=== PATIENT | male | born 1945 | race Caucasian/White ===

== ENCOUNTER → 2017-09-13 | Outpatient (CLI) | payer OTHER ==
[~2017-09-13] MED LIST: ACETAMINOPHEN325 M1 PO; ADULT LOW DOSE81 MG PO; ALEVE220 MG; ALEVE220 MG PO; ASPIRIN325 PO; ASPIRIN81 M2 PO; BACTRIM DS TAB1 EACH PO; BENICAR20 MG PO; COLACE 100 MG100 MG PO; DEPAKOTE ER500 MG PO; DEPAKOTE PO; DEPAKOTE125 MG PO; DEPAKOTE500 MG PO; DIAZEPAM 2MG TAB2 MG PO; DIAZEPAM 5 MG5 M1 PO; EFFEXOR PO; EFFEXOR XR150 MG PO; FISH OIL 1,001000 MG PO; FISH OIL 1,2001 EAC4 PO; FISHOIL; GABAPENTIN 100100 MG PO; HYDROCODONE-AP1 EAC6 PO; HYPOTEARS EYE D15 ML OPHTHALMIC; IBUPROFEN 600600 M1 PO; KEFLEX500 MG PO; LAMICTAL PO; LAMICTAL XR100 MG PO; LAMICTAL XR50 MG; LAMOTRIGINE100 MG PO; LIPITOR 20 MG T20 M1 PO; LIPITOR20 MG PO; LORTAB 5 MG/5001 TAB PO; MECLIZINE 25 MG25 M1 PO; METOPROLOL SUC100 MG PO; MOBIC7.5 M1 PO; MOM PO; MORPHINE SULFAT15 M4 PO; NEURONTIN 300300 M1 PO; NORCO 5-325 TA1 EACH PO; PERCOCET PO; PROAIR HFA8.5 GM IH; RANITIDINE PO; SKELAXIN 800 M800 M1 PO; TRAMADOL 50 MG50 MG; TRAMADOL 50 MG50 MG PO; VALIUM5 MG PO; VYTORIN 10-201 EACH; ZANTAC 150MG T150 M1 PO; ZOLOFT PO; ZPAK PO
--- NOTE | ~2017-09-13 | 2DMMODE ---
[facility] [address] [place] [address] 2 D/M-MODE ECHOCARDIOGRAM Name: NIKOLAYFRANCO WALTON Room #: REG [facility], [facility]#: [id number] Admission: 09/13/17 Attend Phys: Otis Real MD Discharge: Date of : 45 Date of Service: 09/13/17 1410 Report #: [id number] THIS REPORT FOR: //name// APPROVED REPORT Study performed: 09/13/2017 13:08:43 EXAM: Comprehensive 2D, Doppler, and color-flow Echocardiogram Status: routine BSA: 2.02 HR: 64 bpm BP: 132/81 mmHg Rhythm: NSR Other Information Study Quality: Adequate Indications Dyspnea 2D Dimensions RVDd: 28.49 mm LVEF(%): 54.78 (>50%) IVSd: 10.46 (7-11mm) LVOT Diam: 21.54 (18-24mm) LVDd: 39.16 mm PWd: 11.47 (7-11mm) Ascending Ao: 32.96 (22-36mm) LVDs: 28.21 (25-40mm) Aortic Root: 33.81 mm Steward's LVEF: 54.78 % Volumes Left Atrial Volume (Systole) Single Plane 4CH: 41.86 mL Single Plane 2CH: 36.45 mL LA ESV Index: 20.00 mL/m2 Aortic Valve AoV Peak Mega.: 1.11 m/s AO Peak Gr.: 4.89 mmHg LVOT Max P.11 mmHg LVOT Max V: 1.13 m/s CLIFTON Vmax: 3.72 cm2 Mitral Valve E/A Ratio: 0.8 MV Decel. Time: 240.27 ms MV E Max Mega.: 0.67 m/s [facility] [address] [place] [address] 2 D/M-MODE ECHOCARDIOGRAM Name: FRANCO LINK Room #: REG [facility]#: [id number] Admission: 09/13/17 Attend Phys: Otis Real MD Discharge: Date of : 45 Date of Service: 09/13/17 1410 Report #: [id number] MV A Mega.: 0.87 m/s MV PHT: 69.68 ms IVRT: 129.18 ms Pulmonary Valve PV Peak Mega.: 0.92 m/s PV Peak Gr.: 3.35 mmHg Pulmonary Vein P Vein S: 0.59 m/s P Vein A: 0.21 m/s P Vein D: 0.29 m/s P Vein A Dur.: 120.0 msec P Vein S/D Ratio: 2.03 Tricuspid Valve TR Peak Mega.: 2.82 m/s RAP Estimate: 5.00 mmHg TR Peak Gr.: 31.78 mmHg PA Pressure: 37.00 mmHg Left Ventricle The left ventricle is normal size. There is normal LV segmental wall motion. There is normal left ventricular wall thickness. Left ventricular systolic function is normal. LVEF is 55-60%. Mild diastolic dysfunction is present (impaired relaxation pattern). Right Ventricle The right ventricle is normal size. The right ventricular systolic function is normal. Atria The left atrium size is normal. The right atrium size is normal. Aortic Valve The Aortic valve is mildly sclerotic. Mild aortic regurgitation. There is no aortic valvular stenosis. Mitral Valve The mitral valve is normal in structure. Mild mitral regurgitation. Tricuspid Valve The tricuspid valve is normal in structure. Mild tricuspid regurgitation. Estimated PAP is 35-40mmHg. Pulmonic Valve The pulmonary valve is normal in structure. Trace pulmonic [facility] [address] [place] [address] 2 D/M-MODE ECHOCARDIOGRAM Name: NIKOLAYFRANCO ANTON Room #: REG [facility], [facility]#: [id number] Admission: 09/13/17 Attend Phys: Otis Real MD Discharge: Date of : 45 Date of Service: 09/13/17 1410 Report #: [id number] regurgitation. Great Vessels The aortic root is normal in size. The ascending aorta is normal in size. IVC is normal in size and collapses >50% with inspiration. Pericardium There is no pericardial effusion. <Conclusion> The left ventricle is normal size. There is normal left ventricular wall thickness. Left ventricular systolic function is normal. Mild diastolic dysfunction is present (impaired relaxation pattern). The right ventricle is normal size. The left atrium size is normal. Mild aortic regurgitation. Mild mitral regurgitation. Mild tricuspid regurgitation. Estimated PAP is 35-40mmHg. <ELECTRONICALLY SIGNED> By: Otis Real MD 09/13/17 1410 141 141 Otis Real MD /INF
== END ==
LOC: CV 09:47
DX: I08.3 Combined rheumatic disorders of mitral, aortic and tricuspid valves (principal)

== ENCOUNTER 2018-02-06 12:12 | Emergency (ER) | payer OTHER ==
[~2018-02-06] VITALS: Ht 175.3 cm; Wt 86.2 kg
[2018-02-06] MEDS ORDERED: BACTRIM DS TAB1 EACH PO (12:38)
== END 2018-02-06 13:04 | disposition home or self-care (01) ==
LOC: ER 12:12
DX: L03.311 Cellulitis of abdominal wall (principal); Z90.89 Acquired absence of other organs

== ENCOUNTER → 2018-05-01 | Outpatient (CLI) | payer OTHER | LOC: CAT 09:37 | DX: K40.90 Unilateral inguinal hernia, without obstruction or gangrene, not specified as recurrent (principal); K57.30 Diverticulosis of large intestine without perforation or abscess without bleeding ==

== ENCOUNTER → 2018-08-21 | Outpatient (CLI) | payer OTHER | LOC: RAD 13:58 | DX: J98.4 Other disorders of lung (principal) ==

== ENCOUNTER → 2018-09-20 | Outpatient (CLI) | payer OTHER | LOC: CAT 09-19 11:04 | DX: J98.6 Disorders of diaphragm (principal); J98.11 Atelectasis; N62 Hypertrophy of breast; I25.10 Atherosclerotic heart disease of native coronary artery without angina pectoris; I70.0 Atherosclerosis of aorta ==

== ENCOUNTER → 2019-09-03 | Outpatient (CLI) | payer OTHER | LOC: RAD 15:02 | DX: J98.6 Disorders of diaphragm (principal) ==

== ENCOUNTER 2020-02-25 13:13 | Inpatient (IN) | payer OTHER ==
[~2020-02-25] VITALS: Ht 175.3 cm; Wt 86.2 kg
[~2020-02-25 13:13] MED LIST changes: +DEPAKOTE SPRIN125 MG PO; -DEPAKOTE125 MG PO
[2020-02-25 13:17] VITALS: BP 137/55
[2020-02-25] MEDS ORDERED: CARBIDOPA-LEVO1 EAC9 PO (13:25)
[2020-02-25 13:46] LABS: ABSOLUTE NEUTROPHILS 4.4 thou/uL (1.4-8.2); BASOPHILS 0.8 % (0.0-2.0); EOSINOPHILS 4.2 % (0.0-3.0); HEMATOCRIT 41.9 % (42.0-52.0); HEMOGLOBIN 14.5 gm/dL (14.0-18.0); LYMPHOCYTES 19.8 % (24.0-44.0); MCH 30.8 pg (26.0-34.0); MCHC 34.5 g/dL (28.0-37.0); MCV 89.4 fL (80.0-100.0); MONOCYTES 10.2 % (1.0-8.0); PLATELET COUNT 242 thou/uL (150-400); RBC 4.69 mil/uL (4.50-6.00); RDW 14.2 % (10.5-14.5); WBC 6.8 thou/uL (4.0-11.0)
[2020-02-25 13:55] LABS: CALCIUM 9.2 mg/dL (8.5-10.1); CREATININE 1.2 mg/dL (0.7-1.3); POTASSIUM 4.3 mmol/L (3.5-5.1)
[2020-02-25 14:01] LABS: ALBUMIN 3.6 g/dL (3.4-5.0); TOTAL BILIRUBIN 0.7 mg/dL (0.2-1.0)
[2020-02-25 14:55] LABS: URINE BILIRUBIN NEGATIVE (Negative); URINE BLOOD NEGATIVE (Negative); URINE CLARITY CLEAR; URINE COLOR YELLOW; URINE GLUCOSE-RANDOM* NEGATIVE (Negative); URINE KETONES NEGATIVE (Negative); URINE LEUKOCYTES-REFLEX NEGATIVE (Negative); URINE NITRITE-REFLEX NEGATIVE (Negative); URINE PROTEIN (DIPSTICK) NEGATIVE (Negative); URINE SPECIFIC GRAVITY 1.015 (1.005-1.035); URINE UROBILINOGEN 0.2 E.U./dl (0.2-1.0)
--- NOTE | 2020-02-25 16:08 | EKG ---
[facility] [place] [address] ELECTROCARDIOGRAM REPORT Name: FRANCO LINK Room #: REG [facility]#: [id number] Admission: 02/25/20 Attend Phys: Discharge: Date of : 45 Report #: [id number] THIS REPORT FOR: cc: Em Forbes MD,Em Lopez,Rgeinald Wiseman MD ~ THIS REPORT FOR: //name// [facility] ED Test Date: 2020-02-25 Test Time: 14:21:39 Pat Name: FRANCO LINK Department: Room: Gender: Manager Deli: [email or web address] : 1945 Requested By: Clemente Milligan Order Number: [id number] : Reginald Lopez Measurements Intervals [place] Rate: 66 P: -18 CA: 222 QRS: 7 QRSD: 93 T: 49 QT: 417 QTc: 437 Interpretive Statements Sinus rhythm Prolonged CA interval Abnormal R-wave progression, early transition Artifact in lead(s) I,II,III,aVR,aVL,aVF,V4,V5,V6 Compared to ECG 03/21/2016 08:47:31 First degree AV block now present Sinus tachycardia no longer present Electronically Signed On 02-25-2020 16:08:37 CDT by Reginald Lopez [email or web address] <ELECTRONICALLY SIGNED> By: Reginald Lopez MD 02/25/20 1608 [id number] 1421 Reginald Lopez MD /EPI
[2020-02-25 18:13] VITALS: BP 127/63
[2020-02-25] MEDS ORDERED: DEPAKOTE SPRIN125 MG PO (18:36)
[2020-02-25 19:40] VITALS: BP 110/71
[2020-02-25 20:00] VITALS: BP 124/66
[2020-02-26 00:33] VITALS: BP 116/64
--- NOTE | 2020-02-26 01:06 | NUR ---
VSS-AFEBRILE. ALERT AND ORIENTED X 4, LUNGS DIMINISHED IN ALL MATHIS BILATERALLY. 2LNC IN PLACE-NO HOME O2 AT BASELINE. NO C/O PAIN. FALL PRECAUTIONS IN PLACE DUE TO INCREASED WEAKNESS, UPPER EXTREMITY TREMORS NOTED. SBA WHEN OUT OF BED, USES CANE, AND CALLS APPROPRIATELY WHEN NEEDING ANY ASSISTANCE.
[2020-02-26 05:04] VITALS: BP 116/67
[2020-02-26 05:34] LABS: HEMATOCRIT 39.8 % (42.0-52.0); HEMOGLOBIN 13.7 gm/dL (14.0-18.0); MCH 30.9 pg (26.0-34.0); MCHC 34.4 g/dL (28.0-37.0); MCV 89.7 fL (80.0-100.0); RBC 4.43 mil/uL (4.50-6.00); RDW 14.5 % (10.5-14.5); WBC 5.7 thou/uL (4.0-11.0)
[2020-02-26 05:52] LABS: CALCIUM 8.9 mg/dL (8.5-10.1); CREATININE 1.5 mg/dL (0.7-1.3); POTASSIUM 4.2 mmol/L (3.5-5.1)
[2020-02-26 08:01] VITALS: BP 135/58
--- NOTE | 2020-02-26 10:48 | NUR ---
INITIAL ASSESSMENT: FALGUNI reviewed chart and spoke with nursing and attending physician. Pt was admitted from [facility] due to pneumonia. Pt placed in Enhanced Isolation to rule out COVID-19. Awaiting test results at this time. Pt with hx of Parkinson's Disease. Pt is afebrile and not requiring O2 at this time. Pt is on IV abx. FALGUNI spoke with pt via phone. Introduced role of SW. Pt is alert/orientated. Pt reports he lives alone in an apt in the Independent Living. Pt is independent with ADLs and has a cane and walker. Pt does not have to navigate any stairs. There is elevator access if needed. Pt was on [facility] in 2011 and has been to [facility] in the past. Pt has used [facility] in the past. FALGUNI discussed possible discharge needs: post-acute care of HH services. Pt is agreeable with going to [facility] if accepted. FALGUNI discussed with [facility] manager rehab. [facility] consult ordered. Awaiting therapy evals. FALGUNI spoke with Will at [facility] to provide update. FALGUNI is following to assist as needed with discharge planning.
--- NOTE | 2020-02-26 11:53 | NUR ---
PT WAS OFF OF NASAL CANULA THIS MORNING WITH SPO2 AT 97, PT HAD CONCERNS REGARDING MEDICATION; RN CLARIFIED THAT ALL MEDICATION CURRENTLY PRESCRIBED TO THE PT IS BEING RESUMED UNDER HOSPITAL CARE; PT DID GET ANXIOUS ABOUT RECEIVING ALL MEDS AND RN HAD TO HELP PT CALM DOWN FEW TIMES. ADDITIONALLY, PT WAS CONCERNED ABOUT GETTING DME CHARGED, RN FROM [facility] WILL BRING THE CHARGERS TODAY AND THIS RN WILL CHARGE THE DEVICES. CURRENTLY WAITING ON THE COVID TEST RESULT. NO OTHER ISSUES AT THIS TIME
[2020-02-26 16:05] VITALS: BP 101/47
[2020-02-26 19:35] VITALS: BP 116/65
[2020-02-27 03:15] VITALS: BP 123/75
--- NOTE | 2020-02-27 03:43 | NUR ---
RESTING QUIETY TONIGHT. HYDROCODONE IS EFFECTIVE FOR HIS PAIN MEANAGEMENT. MEDICATIONS REFLECT HIS HOME REGIME. CONTINUES ON IV ANTIBIOTICS.
[2020-02-27 07:54] VITALS: BP 128/50
[2020-02-27 09:17] LABS: HEMATOCRIT 40.1 % (42.0-52.0); HEMOGLOBIN 13.6 gm/dL (14.0-18.0); MCH 30.6 pg (26.0-34.0); MCV 90.1 fL (80.0-100.0); RBC 4.46 mil/uL (4.50-6.00); RDW 14.5 % (10.5-14.5); WBC 5.1 thou/uL (4.0-11.0)
[2020-02-27 09:29] LABS: CALCIUM 8.5 mg/dL (8.5-10.1); CREATININE 1.3 mg/dL (0.7-1.3)
--- NOTE | 2020-02-27 11:39 | NUR ---
CONSULTED WITH THE PT TODAY, PROVIDED UPDATE REGARDING CURRENT PLAN OF CARE, ANY NEW CONCERNS. PT VOICED NONE. MEDICATION REGIMEN REITERRATED TO THE PT, PT VERBALIZES UNDERSTANDING BUT STILL HAVING CONCERNS REGARDING GETTING CORRECT DOSAGE OF MEDS FROM HOME. PAIN MEDICATION PROVIDED, LIDOCAINE PATCH PLACED ON LOWER BACK, NO COMPLAINTS OF PAIN FROM THE PT DURING THE SHIFT. SECOND COVID RESULT TO BE POPULATING TODAY, WILL UPDATE MICA MINER AND ATTENDING TO COORDINATE A PLAN FOR DISPOSITION. WILL CONTINUE TO MONITOR AND UPDATE NECESSARY
[2020-02-27 11:49] VITALS: BP 120/67
--- NOTE | 2020-02-27 11:52 | NUR ---
FALGUNI reviewed chart and spoke with nursing and attending physician. Pt remains in Enhanced Isolation to r/o COVID-19. Second test is pending. Pt is afebrile and not requiring O2. Pt is on IV abx. Awaiting therapy evals and [facility] consult once COVID test results are available. FALGUNI spoke with pt via phone to provide update. Pt is hoping to go to [facility] if accepted. FALGUNI received call from Leonarda at [facility]. FALGUNI updated Leonarda regarding possible admission to . Pt is agreeable with returning to [facility] with [facility] after rehab. FALGUNI is following to assist as needed with discharge planning.
[2020-02-27 16:44] VITALS: BP 114/65
[2020-02-27 17:59] VITALS: BP 98/51
--- NOTE | 2020-02-27 18:52 | NUR ---
Patient transferred from at 1745. Patient admitted on 02/25/20 with Diagnosis of Pneumonia after presenting to the ER with Generalized Weakness, Shortness of Air and Cough. Patient is on Room Air. He ambulates with stand-by assist with walker, gait belt or cane. Patient comes from [facility]. He has had 2 negative Covid Tests since admission. Patient has Chronic Back Pain, pain is controlled with a Pain Stimulator, Hydrocodone po and Lidocaine Patches. He has had 3 Brain Surgeries and can be stubborn at times. Patient is on Med/Surg Tele (Sinus Rythm with 1st Degree AV Block, Heartrate runs in the 60's). IV is in Left AC with NS running at 75cc/hr. He had a normal BM on 02/26/20. Lung Sounds clear in upper lobes; bases are diminished. Patient is on Blood Sugars AC and HS, he tends to run low and can become Hypoglycemic quickly. He needs several snacks throughout the shift. Patient pleasant and cooperative upon Transfer. He was given Bennie Crackers, Peanut Butter and Applejuice at 1830. Will report to on-coming nurse.
[2020-02-27 20:06] VITALS: BP 116/50
--- NOTE | 2020-02-28 03:10 | NUR ---
PT IS A&OX4. VITAL SIGNS STABLE. PT DENIES PAIN. PT IS ACHS. PT BLOOD SUGAR WAS 135 AND HE DID NOT CALL FOR INSULIN. PT STATED THAT HE FELT LOW - I RECHECKED BLOOD SUGARN WAS 86. PROVIDED ORAGE JUICE WITH SUGAR AND PEANUT BUTTER. PT STATES THAT HE HAS A HEADACHE. ONCE I GOT THE ORDER FILLED THE PT WAS SLEEP. PT HAS IV ANTIBIOTICS GOING IN THE ROOM RIGHT NOW. I WILL CONTINUE TO MONITOR.
[2020-02-28 05:46] LABS: HEMATOCRIT 38.4 % (42.0-52.0); HEMOGLOBIN 13.2 gm/dL (14.0-18.0); MCH 30.8 pg (26.0-34.0); MCHC 34.2 g/dL (28.0-37.0); RBC 4.27 mil/uL (4.50-6.00); RDW 14.7 % (10.5-14.5); WBC 5.1 thou/uL (4.0-11.0)
[2020-02-28 06:01] LABS: CALCIUM 8.5 mg/dL (8.5-10.1); CREATININE 1.3 mg/dL (0.7-1.3); MAGNESIUM 2.1 mg/dL (1.8-2.4); POTASSIUM 4.3 mmol/L (3.5-5.1)
[2020-02-28 07:47] VITALS: BP 129/65
--- NOTE | 2020-02-28 14:51 | NUR ---
Assumed pt care at 7am.Assessment completed.vss.Pt up in chair very sleepy but arousable.Pt has good appetite and tolerated meds.Dr Ha and Eliza here,order noted.Pt will possibly dc home with home health later today.Will continue to monitor.
[2020-02-28 15:17] VITALS: BP 129/65
--- NOTE | 2020-02-28 15:19 | NUR ---
[facility] ASSESSED AND INDICATED THAT PT IS DOING VERY MOBILITY WU AND WOULD BE MEDICALLY STABLE TO RETURN HOME WITH HH SERVICES ONCE MEDICALLY STABLE. CM SPOKE WITH PHYSICIAN AND HE INDICATED PT WOULD BE MEDICALLY STABLE TO DC HOME THIS DAY. CM SPOKE WITH PT AND HE IS AWARE AND AGREEABLE. HE WOULD LIKE TO USE [facility]. CM CALLED OFFICE AND FAXED OVER CLINICAL INFO AND ORDERS ARE TO FOLLOW ONCE COMPLETED. PT INIDCATED HE NEEDED TO PROVIDE COVID RESULTS TO [facility]. CM CALLED THE OFFICE THERE WITH PT'S PERMISSION AND FAXED TEST RESULTS OVER. CM TO ARRANGE [facility] ONCE ORDERS ARE ENTERED .
[2020-02-28] MEDS ORDERED: CEFDINIR300 MG PO (15:35)
[2020-02-28] MEDS ORDERED: AZITHROMYCIN 2250 MG PO (15:35)
--- NOTE | 2020-02-28 15:45 | NUR ---
PATIENT SEEN THIS DATE FOR REHAB CONSULT BY SOPHIE HULL NP WITH DR. MAGALLANES. PATIENT IS NOT A CANDIDATE FOR ACUTE REHAB. TOO HIGH FUNCTIONING. PATIENT TO DISCHARGE TO HOME WITH HOME HEALTH CARE. THANK YOU FOR THIS REFERRAL.
[2020-02-28 17:32] VITALS: BP 129/65
== END 2020-02-28 18:15 | disposition home health service (06) | DRG 193 ==
LOC: ER 13:13 → EROBS 17:37 → 3W 17:37 → 4W 02-27 18:29
PROVIDERS: Internal Medicine; Physician Assistant; ADMIT Hospitalist; ATTEND Hospitalist
DX: J18.9 Pneumonia, unspecified organism (principal); N17.0 Acute kidney failure with tubular necrosis; F31.9 Bipolar disorder, unspecified; I10 Essential (primary) hypertension; E78.5 Hyperlipidemia, unspecified; E11.9 Type 2 diabetes mellitus without complications; G20 Parkinson's disease; Z20.828 Contact with and (suspected) exposure to other viral communicable diseases; Z79.899 Other long term (current) drug therapy
CPT/HCPCS: 10045; 10879

== ENCOUNTER → 2020-07-14 | Outpatient (CLI) | payer OTHER ==
[~2020-07-14] MED LIST changes: +AZITHROMYCIN 2250 MG PO; +CARBIDOPA-LEVO1 EAC9 PO; +CEFDINIR300 MG PO
== END ==
LOC: SJCVC 13:17
PROVIDERS: ATTEND Internal Medicine Cardiovascular Disease
DX: R94.31 Abnormal electrocardiogram [ECG] [EKG] (principal); I10 Essential (primary) hypertension; E78.00 Pure hypercholesterolemia, unspecified; R60.9 Edema, unspecified; G47.33 Obstructive sleep apnea (adult) (pediatric); K21.9 Gastro-esophageal reflux disease without esophagitis; E11.9 Type 2 diabetes mellitus without complications; E78.5 Hyperlipidemia, unspecified; G47.30 Sleep apnea, unspecified; F32.9 Major depressive disorder, single episode, unspecified; Z99.89 Dependence on other enabling machines and devices; Z79.899 Other long term (current) drug therapy

== ENCOUNTER → 2020-08-26 | Outpatient (CLI) | payer OTHER | LOC: SJCVCIMAG 13:30 | PROVIDERS: ATTEND Internal Medicine Cardiovascular Disease | DX: I73.9 Peripheral vascular disease, unspecified (principal); M79.604 Pain in right leg; M79.605 Pain in left leg; E78.5 Hyperlipidemia, unspecified; Z79.899 Other long term (current) drug therapy ==

== ENCOUNTER → 2020-09-23 | Outpatient (CLI) | payer OTHER | LOC: RAD 12:49 | PROVIDERS: ATTEND Internal Medicine Pulmonary Disease | DX: R06.02 Shortness of breath (principal) ==

== ENCOUNTER 2020-11-18 12:25 | Emergency (ER) | payer OTHER ==
[~2020-11-18] VITALS: Ht 175.3 cm; Wt 86.2 kg
[2020-11-18] MEDS ORDERED: FAMOTIDINE 20 M20 MG PO (12:37)
[2020-11-18 13:30] LABS: ABSOLUTE NEUTROPHILS 4.3 thou/uL (1.4-8.2); EOSINOPHILS 5.5 % (0.0-3.0); HEMATOCRIT 43.5 % (42.0-52.0); HEMOGLOBIN 14.7 gm/dL (14.0-18.0); LYMPHOCYTES 19.8 % (24.0-44.0); MCH 30.2 pg (26.0-34.0); MCHC 33.7 g/dL (28.0-37.0); MCV 89.5 fL (80.0-100.0); MONOCYTES 8.5 % (1.0-8.0); PLATELET COUNT 253 thou/uL (150-400); POLYS 65.2 % (36.0-66.0); RBC 4.87 mil/uL (4.50-6.00); RDW 14.1 % (10.5-14.5); WBC 6.6 thou/uL (4.0-11.0)
[2020-11-18 13:57] LABS: CALCIUM 9.2 mg/dL (8.5-10.1); CREATININE 1.3 mg/dL (0.7-1.3); POTASSIUM 4.5 mmol/L (3.5-5.1)
[2020-11-18 14:04] LABS: ALBUMIN 3.5 g/dL (3.4-5.0); TOTAL PROTEIN 7.1 g/dL (6.4-8.2)
[2020-11-18 15:16] VITALS: BP 135/71
[2020-11-18] MEDS ORDERED: HYDROCODON-ACE1 EAC7 PO (15:35)
== END 2020-11-18 18:26 | disposition home or self-care (01) ==
LOC: ER 12:25
PROVIDERS: Nurse Practitioner
DX: M54.5 Low back pain (principal); M25.551 Pain in right hip; M79.651 Pain in right thigh; R20.0 Anesthesia of skin; R20.2 Paresthesia of skin; Z98.890 Other specified postprocedural states

== ENCOUNTER → 2021-08-09 | Outpatient (CLI) | payer OTHER ==
[~2021-08-09] MED LIST changes: +FAMOTIDINE 20 M20 MG PO; +HYDROCODON-ACE1 EAC7 PO
== END ==
LOC: SJCVC 12:35
PROVIDERS: ATTEND Internal Medicine Cardiovascular Disease
DX: R94.31 Abnormal electrocardiogram [ECG] [EKG] (principal); I10 Essential (primary) hypertension; E78.00 Pure hypercholesterolemia, unspecified; G47.33 Obstructive sleep apnea (adult) (pediatric); F41.9 Anxiety disorder, unspecified; F31.9 Bipolar disorder, unspecified; I25.10 Atherosclerotic heart disease of native coronary artery without angina pectoris; E11.9 Type 2 diabetes mellitus without complications; K21.9 Gastro-esophageal reflux disease without esophagitis; M10.9 Gout, unspecified; E78.5 Hyperlipidemia, unspecified; G20 Parkinson's disease; Z99.89 Dependence on other enabling machines and devices; Z79.899 Other long term (current) drug therapy